=== PATIENT | male | born 1985 | race Caucasian/White ===

== ENCOUNTER 2016-06-14 08:15 | Observation (INO) | payer OTHER ==
[2016-06-14] VITALS (10 sets, daily range): BP systolic 86–140; BP diastolic 57–79
[~2016-06-14] VITALS: Ht 172.7 cm; Wt 119.6 kg
--- NOTE | 2016-06-14 11:58 | DIAGNOSTIC IMAGING REPORT ---
PROCEDURE: CT ABD/PELVIS WITH CONTRAST CLINICAL INDICATION: Right lower quadrant pain, initial encounter TECHNIQUE: 125 ml of Isovue 300 were injected intravenously and axial images were obtained of the entire abdomen and pelvis with sagittal and coronal reformations. COMPARISON: None. FINDINGS: ABDOMEN: 6 mm right major fissure ground-glass nodule. Normal heart size. Hepatic steatosis. Gallbladder, pancreas, spleen, adrenal glands and kidneys are normal. Normal abdominal aorta. PELVIS: Appendicolith and enlarged appendix (1.2 cm) with stranding of the adjacent fat. No abscess or free air. No pelvic mass or free fluid. Bones are unremarkable. IMPRESSION: 1. Acute appendicitis 2. 6 mm right major fissure nodule. Recommend follow-up CT scan in 6 months. 3. Hepatic steatosis 4. Results discussed with Dr. Bates All CT scans at this facility use dose modulation, iterative reconstruction, and/or weight-based dosing when appropriate to reduce radiation dose to as low as reasonably achievable.
--- NOTE | 2016-06-14 12:08 | ED ORDER SUMMARY ---
..... Patient: DUSTY UP OrderSheet [facility] VisitID: [id number] [place] [address] 31y, M Registration Date/Time: 06/14/2016 ORDER SHEET Weight: 113.3 kg (stated) Allergies: Penicillins GENERAL ORDERS: CBC w Diff Urgent (:06/14/2016 Mars OROPEZA) (Ack 9:27 Ra) (10:19 Alis R.N.) CMP Urgent (:06/14/2016 Mars OROPEZA) (Ack 9:28 Ra) (10:19 Alis R.N.) UA-Culture if indicated Urgent (06/14/2016 Mars OROPEZA) (Ack 9:28 Ra) (10:19 Alis R.N.) CT Abd/Pel w Cont (No) (pending) (pending lab) Urgent (09:06/14/2016 Mars OROPEZA) (Ack 9:28 Ra) (10:19 Alis R.N.) - (SET UP FOR PELVIC EXAM WITH VIRAL TRANSPORT MEDIUM READY) (11:58 06/14/2016 Mars OROPEZA) (Cancelled: Wrong [id number] Mars OROPEZA) MEDICATION ORDERS: IV FLUIDS: IV NS : initial bolus none -, then 1000 mL/hr for 2h (NOW); Urgent (:06/14/2016 Mars OROPEZA) (Ack 9:51 Alis R.N.) (10:19 Alis R.N.) Zofran IV 4 mg (NOW) (09:06/14/2016 Mars OROPEZA) (Ack 9:51 Alis R.N.) (10:20 Alis R.N.) Dilaudid IV 1 mg + 0.5 mg (HIGH ALERT MEDICATION) (:06/14/2016 Mars OROPEZA) (Ack 9:51 Alis R.N.) (10:20 Alis R.N.) Levaquin IV 750 mg/150 mL (NOW) (12:35 06/14/2016 Mars OROPEZA) (Ack 12:38 Alis R.N.) (13:28 Alis Anders) Flagyl IV 500 mg/100mL (NOW) (12:35 06/14/2016 Mars OROPEZA) (Ack 12:39 Alis Anders) (12:50 Alis Anders) ORDER SHEET NOTES: [Electronically signed by Hannah Solares R.N. (13:37 06/14/2016)] [Electronically signed by Nathaniel Bates MD (22:24 06/14/2016)] [Electronically locked/signed by Hannah Solares R.N. (13:37 06/14/2016)]
--- NOTE | 2016-06-14 12:08 | ED ORDER SUMMARY ---
..... Patient: DUSTY UP OrderSheet [facility] VisitID: [id number] [place] [address] 31y, M Registration Date/Time: 06/14/2016 ORDER SHEET Weight: 113.3 kg (stated) Allergies: Penicillins GENERAL ORDERS: CBC w Diff Urgent (:06/14/2016 Mars OROPEZA) (Ack 9:27 Ra) (10:19 Alis R.N.) CMP Urgent (:06/14/2016 Mars OROPEZA) (Ack 9:28 Ra) (10:19 Alis R.N.) UA-Culture if indicated Urgent (06/14/2016 Mars OROPEZA) (Ack 9:28 Ra) (10:19 Alis R.N.) CT Abd/Pel w Cont (No) (pending) (pending lab) Urgent (09:06/14/2016 Mars OROPEZA) (Ack 9:28 Ra) (10:19 Alis R.N.) - (SET UP FOR PELVIC EXAM WITH VIRAL TRANSPORT MEDIUM READY) (11:58 06/14/2016 Mars OROPEZA) (Cancelled: Wrong [id number] Mars OROPEZA) MEDICATION ORDERS: IV FLUIDS: IV NS : initial bolus none -, then 1000 mL/hr for 2h (NOW); Urgent (:06/14/2016 Mars OROPEZA) (Ack 9:51 Alis R.N.) (10:19 Alis R.N.) Zofran IV 4 mg (NOW) (09:06/14/2016 Mars OROPEZA) (Ack 9:51 Alis R.N.) (10:20 Alis R.N.) Dilaudid IV 1 mg + 0.5 mg (HIGH ALERT MEDICATION) (:06/14/2016 Mars OROPEZA) (Ack 9:51 Alis R.N.) (10:20 Alis R.N.) Levaquin IV 750 mg/150 mL (NOW) (12:35 06/14/2016 Mars OROPEZA) (Ack 12:38 Alis R.N.) (13:28 Alis Anders) Flagyl IV 500 mg/100mL (NOW) (12:35 06/14/2016 Mars OROPEZA) (Ack 12:39 Alis Anders) (12:50 Alis Anders) ORDER SHEET NOTES: [Electronically signed by Hannah Solares R.N. (13:37 06/14/2016)] [Electronically signed by Nathaniel Bates MD (22:24 06/14/2016)] [Electronically locked/signed by Hannah Solares R.N. (13:37 06/14/2016)]
--- NOTE | 2016-06-14 12:08 | ED CLINICAL REPORT ---
Clinical Report - Physicians/Mid Levels [facility] [address] [place] [address] 06/14/2016 8:19 [id number] Time Seen: 09:19. Arrived- By private vehicle. Historian- patient. HISTORY OF PRESENT ILLNESS Chief Complaint: ABDOMINAL PAIN. Not located in right flank. It is described as located in the right lower quadrant and in the upper abdomen. Modifying factors- worsened by movement, walking and deep breaths. Relieved by rest. This started yesterday 2 PM; Initially mid abdomen now RLQ and is still present. It was gradual in onset. The patient has had nausea and loss of appetite. No vomiting. (Last food 4 pm. Last liquids 7 pm yesterday.). Similar symptoms previously: None. Recent medical care: Not recently seen/assessed. REVIEW OF SYSTEMS No constipation, black stools, hematemesis, difficulty with urination or pain with urination. No urinary frequency, fever, headache or sore throat or throat. No blurred vision, chest pain or pain, difficulty breathing or cough. No joint pain, skin rash, chills, back pain or chills. No fever, muscle aches, double vision, ear pain or cough. No difficulty breathing. Last bowel movement: today. PAST HISTORY [place] [facility]: None Hosp: None Illness: None. SOCIAL HISTORY Never smoker. ADDITIONAL NOTES The nursing notes have been reviewed. PHYSICAL EXAM Vital Signs: 06/14/2016 08:31 BP: 122/69. HR: 60. RR: 18. O2 saturation: 98%. Temp: 97.8 F. Pain level now: 8/10. Appearance: Alert. Patient in mild distress. Eyes: Pupils equal, round and reactive to light. ENT: Pharynx normal. CVS: Heart sounds normal. Respiratory: No respiratory distress. Breath sounds normal. Abdomen: Moderate tenderness in the right lower quadrant. Mild guarding present in the right lower quadrant. Rebound tenderness (mild tenderness to percussion). Back: Normal inspection. : Normal genitalia. Testes descended. Skin: Normal skin color. No rash. Extremities: Extremities exhibit normal ROM. No lower extremity edema. LABS, X-RAYS, AND EKG Laboratory Tests: UA-Culture if indicated: (JODI: 06/14/2016 08:40) ( MsgRcvd 06/14/2016 09:48) Final results Test Result Flag Units (Reference) URINE COLOR YELLOW URINE APPEARANCE CLEAR URINE GLUCOSE NEGATIVE (NEGATIVE) URINE BILIRUBIN NEGATIVE (NEGATIVE) URINE KETONE NEGATIVE (NEGATIVE) URINE SPECIFIC GRAVITY 1.015 (1.010-1.030) URINE PH 6.5 (5.0-8.0) URINE PROTEIN NEGATIVE (NEGATIVE) URINE UROBILINOGEN 0.2 EU/dL (0.2-1.0) URINE NITRITE NEGATIVE (NEGATIVE) URINE BLOOD NEGATIVE (NEGATIVE) URINE LEUK ESTERASE NEGATIVE (NEGATIVE) URINE RBC NONE SEEN rbc/hpf (0-1) URINE WBC 0-1 wbc/hpf (0-1) URINE EPITHELIAL CELLS RARE EPI/hpf (0-5) URINE BACTERIA NONE SEEN (NONE SEEN) URINE COMMENT CULT NOT INDICATED 1+ MUCOUSURINE CULTURES ARE SET-UP BASED ON THE FOLLOWING CRITERIA:POSITIVE NITRITEPOSITIVE LEUKOCYTE ESTERASEGREATER THAN 10 WHITE BLOOD CELLSMODERATE (2+) OR GREATER BACTERIA CBC w Diff: (JODI: 06/14/2016 09:55) ( MsgRcvd 06/14/2016 10:24) Final results Test Result Flag Units (Reference) WHITE BLOOD COUNT 7.8 K/uL (4.5-11.5) RED BLOOD COUNT 5.33 M/uL (4.50-5.90) HEMOGLOBIN 15.8 gm/dL (13.5-17.5) HEMATOCRIT 46.7 % (41.0-53.0) MEAN CELL VOLUME 88 fL (80-100) MEAN CORPUSCULAR HGB 30 pg (26-34) MEAN CORPUSCULAR HGB CONC 34 g/dL (31-37) RED CELL DISTRIBUTION WIDTH 12.0 % (11.6-14.8) PLATELET COUNT 256 K/uL (150-400) NEUTROPHIL % 53.5 % (50-75) LYMPH % 39.8 % (25-40) MONO % 4.6 % (3-14) EOSINOPHIL % 1.6 % (0-4) BASOPHIL % 0.5 % (0-2) CMP: (JODI: 06/14/2016 09:55) ( MsgRcvd 06/14/2016 10:43) Final results Test Result Flag Units (Reference) GLUCOSE 95 mg/dL (70-110) BUN 20 H mg/dL (7-18) CREATININE 1.0 mg/dL (0.6-1.3) Estimated GFR >60 mL/min Estimated GFR- >60 mL/min Note: Persistent reduction over 3 months in eGFR<60 mL/min/1.73 m2 defines CKD. Patients with eGFR values>=60 mL/min/1.73 m2 may also have CKD if evidence ofpersistent proteinuria. Additional information may be foundat www.kidney.org. SODIUM 137 mmol/L (136-145) POTASSIUM 3.9 mmol/L (3.5-5.1) CHLORIDE 103 mmol/L (98-107) CARBON DIOXIDE 27 mmol/L (21-32) CALCIUM 8.8 mg/dL (8.5-10.1) TOTAL PROTEIN 7.5 g/dL (6.4-8.2) ALBUMIN 4.2 g/dL (3.3-5.0) BILIRUBIN, TOTAL 0.6 mg/dL (0.0-1.0) ALKALINE PHOSPHATASE 67 U/L (46-116) AST (SGOT) 19 U/L (15-37) ALT (SGPT) 67 U/L (12-78) . PROGRESS AND PROCEDURES Course of Care: 09:37 06/14/16. Quite suspicious for appy. 12:07 06/14/16. Appy per Dr Alvarez. 12:10 06/14/16. Dr Sanchez will admit. Discussed. T bed requested. 12:33 06/14/16. Dr Sanchez here. He requests Levaquin and Flagyl. Ordered. I have written very brief transitions orders. Dr Sanchez has signed his pre printed order sheet. CLINICAL IMPRESSION ACUTE APPENDICITIS. (Electronically signed by Nathaniel Bates MD 06/14/2016 22:24)
--- NOTE | 2016-06-14 12:08 | ED NURSING NOTES ---
Clinical Report - Nurses [facility] [address] [place] [address] 06/14/2016 8:19 [id number] Triage time 08:31. Acuity: LEVEL 3. Chief Complaint: ABDOMINAL PAIN. Alert. No acute distress. SELENE COMA SCORE: Selene Coma Scale: 15- eyes open spontaneously (4); best verbal response- oriented x 4 (5); best motor response- obeys commands (6). --08:39 Hannah Solares R.N. 08:31 06/14/16. BP: 122/69. HR: 60. RR: 18. O2 saturation: 98% on room air. Temp: 97.8 F (oral). Pain level now: 8/10. --08:39 Hannah Solares R.N. Weight: 113.3 kg stated. Height/Length: 68 inches Per Patient. BMI: 38. --08:33 Hannah Solares R.N. Medications None. --08:33 Hannah Solares R.N. Medication/allergy information source: the patient. --08:39 Hannah Solares R.N. Allergies Penicillins. --08:33 Hannah Solares R.N. History Arrived by private vehicle. Historian: patient. Accompanied by family. Primary physician (Anthony). This started yesterday. Describes the quality as "pain" and stabbing and ( constant pain with intermittent stabbing in RUQ). Relates location as in the right upper quadrant and upper abdomen. Notes pain level as 8/10 on arrival and 10/10 at maximum. Provoking / relieving factors: worsened by deep breaths; relieved by upright position. The patient has had nausea. No vomiting or diarrhea. Last oral intake by patient was (1600 yesterday). SOCIAL HX: Smoker- current status unknown (no). Occasional alcohol use. No drug use. FALL RISK ASSESSMENT: Fall risk assessment completed. No fall risk identified. FUNCTIONAL ASSESSMENT: Functional assessment: no impairments noted. LEARNING NEEDS ASSESSMENT: The learning needs assessment revealed no barriers. --08:39 Hannah Solares R.N. PROBLEMS: no known problems. ADDITIONAL SURGERIES: no known surgeries. Assessment GENERAL / NEURO / PSYCH: Alert. Oriented X 4. Appears in no acute distress. Patient appears calm and cooperative. RESPIRATORY: Respirations not labored. SKIN: Skin is warm and dry. --08:39 Hannah Solares R.N. Interventions ID and allergy band on patient. To treatment room. --08:39 Hannah Solares R.N. PHYSICAL ASSESSMENT 08:44 06/14/16. Ambulatory to room. Patient gowned. GENERAL / NEURO / PSYCH: Alert. Oriented X 4. Appears in no acute distress. RESPIRATORY: Respirations not labored. SKIN: Skin is warm and dry. --08:44 Hannah Solares R.N. NURSING PROGRESS NOTES 08:27 collecting urine specimen. --08:27 Hannah Solares R.N. 08:44 06/14/16. Patient gowned. Head of bed elevated. Call light placed in reach. Side rails up x 1. Bed placed in lowest position. Brakes of bed on. --08:44 Hannah Solares R.N. 08:44 06/14/16. :patient confirmed. Clean catch urine collected; sample sent to lab. Specimen labeled in the presence of the patient. --08:44 Hannah Solares R.N. 10:09 06/14/2016 Site #1 started via IV in the right antecubital space with an 20g angiocath, with aseptic technique and good blood return; one attempt. Blood drawn: rainbow set. Labeled in the presence of the patient and sent to the lab. --10:19 Hannah Solares R.N. 10:19 06/14/2016 Started bag #1 1000 mL IV Fluids IV NS (Saline); at 1000 mL/hr over 1 hour(s) via site #1. IV patency established. IV site checked: no pain, redness, or swelling. IV flushed thoroughly pre- and post-medication administration. --10:19 Hannah Solares R.N. 10:20 06/14/2016 Zofran (Ondansetron HCl) IVP 4 mg given over 2 minute(s) via site #1. Allergies verified and confirmed 5 rights. IV patency established. IV site checked: no pain, redness, or swelling. IV flushed thoroughly pre- and post-medication administration. IVP given by RN. --10:20 Hannah Solares R.N. 10:20 06/14/2016 Dilaudid (HYDROmorphone HCl PF) IVP 1 mg given over 2 minute(s) via site #1. Allergies verified, confirmed 5 rights and sedative warning given to the patient. IV patency established. IV site checked: no pain, redness, or swelling. IV flushed thoroughly pre- and post-medication administration. IVP given by RN. --10:20 Hannah Solares R.N. Patient transported to CT by stretcher. --10:52 Hannah Solares R.N. Patient returned from CT by stretcher. --12:12 Hannah Solares R.N. 11:30. Reassessment after fluids administered and medication administered. He is resting quietly. Overall patient status is the same- he states feels the same. --12:12 Hannah Solares R.N. 12:13. Reassessment after fluids administered, procedure and medication administered. He is resting quietly. Overall patient status is the same- he states feels the same (up, amb to BR). SKIN: Skin is warm and dry. --12:14 Hannah Solares R.N. ( h&P GIVEN TO PT TO FILL OUT). --12:17 Yvette Landers 12:26 06/14/2016 IV Fluids IV NS Bag Change: bag #1 infused. Total amount infused: 1000. STARTED bag #2 (1000 mL) at 150 mL/hr. --12:51 Hannah Solares R.N. 12:32 06/14/2016 Dilaudid (HYDROmorphone HCl PF) IVP 0.5 mg given over 2 minute(s) via site #1. Allergies verified, confirmed 5 rights and sedative warning given to the patient. IV patency established. IV site checked: no pain, redness, or swelling. IV flushed thoroughly pre- and post-medication administration. IVP given by RN. --12:38 Hannah Solares R.N. 12:50 06/14/2016 Started 500 mg of Flagyl (MetroNIDAZOLE in NaCl) IVPB in bag #1 100 mL; at 100 mL/hr over 1 hour(s) via site #1 via IV pump. Allergies verified and confirmed 5 rights. IV patency established. IV site checked: no pain, redness, or swelling. IV flushed thoroughly pre- and post-medication administration. --12:50 Hannah Solares R.N. 12:40 Dr Sanchez at bedside. --12:52 Hnanah Solares R.N. 12:53 06/14/16. Reassessment after fluids administered and medication administered. He is resting quietly. Overall patient status is the same- he states feels the same. SKIN: Skin is warm and dry. --12:53 Hannah Solares R.N. <<STRICKEN ENTRY-- 13:27 06/14/2016 Started 750 mg of Levaquin (Levofloxacin) IVPB in bag #1 100 mL; at 100 mL/hr via site #1; (sent to floor to be infused after Flagyl per Klaus HINOJOSA, Manager Research Development). --13:28 Hannah Solares R.N. --END STRIKE>> Change to Details. --13:29 Hannah Solares R.N. 13:27 06/14/2016 Started 750 mg of Levaquin (Levofloxacin) IVPB in bag #1 100 mL; at 100 mL/hr via site #1; (sent to floor to be infused after Flagyl per Klaus HINOJOSA, [employer], NOT STARTED in ED as pharmacy states not compatible with Flagyl). --13:29 Hannah Solares R.N. 13:22. Reassessment after fluids administered and medication administered. He is calm and resting quietly. Overall patient status is the same- he states feels the same. GI / : Denies nausea or vomiting. SKIN: Skin is warm and dry. --13:31 Hannah Solares R.N. 10:00 06/14/16. BP: 126/78. HR: 66. RR: 18. O2 saturation: 99%. Pain level now: 10/15. --13:33 Hannah Solares R.N. DISPOSITION / DISCHARGE Admitted. Transported via stretcher by [facility] with IV. Report was given to a nurse via a phone call. Report included patient's care, treatment, medications, reviewed medication reconcilliation, and condition (including any recent changes or anticipated changes). All questions were answered. Report was acknowledged. ( transferred to floor with IV intact and infusing NS and Flagyl). Patient's personal items; items were transported with the patient. --13:07 Hannah Solares R.N. 12:51 06/14/16. BP: 115/73. HR: 72. RR: 18. O2 saturation: 91% on room air. Pain level now: 10/15. --13:07 Hannah Solares R.N. Departure time: 1322. --13:31 Hannah Solares R.N. 11:00 06/14/16. BP: 124/75. HR: 57. RR: 18. O2 saturation: 99%. Pain level now: 10/15. --13:35 Hannah Solares R.N. Locked/Released at 06/14/2016 13:37 by Hannah Solares R.N.
[2016-06-14] MEDS ORDERED: [UNRECOGNIZED DRUG - OTHER] (14:07)
[2016-06-14] MEDS ORDERED: MOTRIN100 MG/5 M PO (14:07)
[2016-06-14] MEDS ORDERED: NORCO1 TA1 PO (16:02)
--- NOTE | 2016-06-14 16:03 | Provider's Discharge Care Plan ---
Problem, Goal, Plan Problem List 1. Acute appendicitis
--- NOTE | 2016-06-14 16:03 | Provider's Discharge Care Plan ---
Problem, Goal, Plan Problem List 1. Acute appendicitis
--- NOTE | 2016-06-14 20:10 | OPERATIVE REPORT ---
DATE OF SURGERY: 06/14/2016 SURGEON: Fadi Sanchez MD PREOPERATIVE DIAGNOSIS: 1. Acute appendicitis POSTOPERATIVE DIAGNOSIS: 1. Acute suppurative appendicitis PROCEDURE PERFORMED: 1. Laparoscopic appendectomy ANESTHESIA: General. INDICATIONS: The patient is a 31-year-old man with a 1-day history of worsening abdominal pain. SURGICAL TECHNIQUE: The patient was taken to the operating room where a general anesthetic was administered, and the patient prepped and draped in the usual sterile fashion. An orogastric tube, IV antibiotics, and sequential compression devices were in place. Local anesthetic of 0.5% Marcaine with epinephrine was used at each incision site. An infraumbilical incision was made and a Veress needle used to insufflate the abdominal cavity. A 10 mm trocar was passed, and 2 additional trocars were placed in the lower midline. The appendix was found to be inflamed, though the base of the appendix itself was pink and normal. The distal half was suppurative, but not perforated. The mesoappendix was taken down using the Thunderbeat device, and the base of the appendix clipped with 2 Hem-o-odilia clips. The specimen side was clipped and the appendix partially divided. Bipolar current was applied to the mucosa, following which the appendix was transected and placed in a specimen bag and removed from the abdomen. Irrigation and suction were used and hemostasis was found be complete. Additional Marcaine was instilled. Gas was evacuated. The skin sites were closed with interrupted subcuticular 4-0 Vicryl sutures. Steri-Strips and dressings were applied, and the patient left in good condition.
--- NOTE | 2016-06-14 22:25 | ED MAR SUMMARY ---
..... Medication Administration Record [facility] [address] [place] [address] Patient: DUSTY UP Visit ID: [id number] 31y, M Weight: 113.3 kg Height/Length: 68 in BMI: 38 ALLERGIES: Penicillins Start 10:19 06/14/2016 Hannah Solares R.N. Medication Administered: IV NS (SALINE), Dose: IV Fluids over 1 hour(s), Rate: 1000 mL/hr, Dispensed: 1000 mL bag, Site: #1 right AC. Medication Ordered: IV NS : initial bolus none -, then 1000 mL/hr for 2h (NOW); Urgent. Given 10:06/14/2016 Hannah Solares R.N. Medication Administered: ZOFRAN [IVP] (ONDANSETRON HCL), Dose: 4 mg IVP over 2 minute(s), Site: #1 right AC. Medication Ordered: Zofran IV 4 mg (NOW). Given 10:06/14/2016 Hannah Solares R.N. Medication Administered: DILAUDID [IVP] (HYDROMORPHONE HCL PF), Dose: 1 mg IVP over 2 minute(s), Site: #1 right AC. Medication Ordered: Dilaudid IV 1 mg + 0.5 mg (HIGH ALERT MEDICATION). Given 12:32 06/14/2016 Hannah Solares R.N. Medication Administered: DILAUDID [IVP] (HYDROMORPHONE HCL PF), Dose: 0.5 mg IVP over 2 minute(s), Site: #1 right AC. Medication Ordered: Dilaudid IV 1 mg + 0.5 mg (HIGH ALERT MEDICATION). Start 12:50 06/14/2016 Hannah Solares R.N. Medication Administered: FLAGYL [IVPB] (METRONIDAZOLE IN NACL), Dose: 500 mg IVPB over 1 hour(s), Rate: 100 mL/hr, Dispensed: 100 mL bag, Site: #1 right AC. Medication Ordered: Flagyl IV 500 mg/100mL (NOW). Start 13:27 06/14/2016 Hannah Solares R.N. Medication Administered: LEVAQUIN [IVPB] (LEVOFLOXACIN), Dose: 750 mg IVPB, Rate: 100 mL/hr, Dispensed: 100 mL bag, Site: #1 right AC. Medication Ordered: Levaquin IV 750 mg/150 mL (NOW).
--- NOTE | 2016-06-14 22:25 | ED DISCHARGE INSTRUCTIONS ---
Patient: DUSTY UP General Instructions [facility] VisitID: [id number] [address] [place] [address] 31y, M Registration Date/Time: 06/14/2016 ACUTE APPENDICITIS. (Electronically signed by Nathaniel Bates MD 06/14/2016 22:24)
--- NOTE | 2016-06-14 22:25 | ED MED RECONCILIATION SUMMARY ---
Patient: DUSTY UP Medication Reconciliation Report [facility] VisitID: [id number] [address] [place] [address] 31y, M Registration Date/Time: 06/14/2016 Weight: 113.3 kg Height/Length: 68 in. BMI: 38.0 ALLERGIES: Penicillins The patient's Home Medications are listed below: NONE. The source(s) of the original Home Medication information: patient The following Medications were given to the patient in the Emergency Department: IV NS IV Fluids bolus 0, then 1000 mL/hr, administered: 06/14/2016 10:19:00 AM Zofran [IVP] IVP 4 mg, administered: 06/14/2016 10:20:00 AM Dilaudid [IVP] IVP 1 mg, administered: 06/14/2016 10:20:00 AM Dilaudid [IVP] IVP 0.5 mg, administered: 06/14/2016 12:32:00 PM Flagyl [IVPB] IVPB bolus 0, then 500 mg 100 mL/hr, administered: 06/14/2016 12:50:00 PM Levaquin [IVPB] IVPB bolus 0, then 750 mg 100 mL/hr, administered: 06/14/2016 1:27:00 PM The following Medications were prescribed to the patient: None.
--- NOTE | 2016-06-14 22:25 | ED DISCHARGE INSTRUCTIONS ---
Patient: DUSTY UP General Instructions [facility] VisitID: [id number] [address] [place] [address] 31y, M Registration Date/Time: 06/14/2016 ACUTE APPENDICITIS. (Electronically signed by Nathaniel Bates MD 06/14/2016 22:24)
--- NOTE | 2016-06-14 22:25 | ED MAR SUMMARY ---
..... Medication Administration Record [facility] [address] [place] [address] Patient: DUSTY UP Visit ID: [id number] 31y, M Weight: 113.3 kg Height/Length: 68 in BMI: 38 ALLERGIES: Penicillins Start 10:19 06/14/2016 Hannah Solares R.N. Medication Administered: IV NS (SALINE), Dose: IV Fluids over 1 hour(s), Rate: 1000 mL/hr, Dispensed: 1000 mL bag, Site: #1 right AC. Medication Ordered: IV NS : initial bolus none -, then 1000 mL/hr for 2h (NOW); Urgent. Given 10:06/14/2016 Hannah Solares R.N. Medication Administered: ZOFRAN [IVP] (ONDANSETRON HCL), Dose: 4 mg IVP over 2 minute(s), Site: #1 right AC. Medication Ordered: Zofran IV 4 mg (NOW). Given 10:06/14/2016 Hannah Solares R.N. Medication Administered: DILAUDID [IVP] (HYDROMORPHONE HCL PF), Dose: 1 mg IVP over 2 minute(s), Site: #1 right AC. Medication Ordered: Dilaudid IV 1 mg + 0.5 mg (HIGH ALERT MEDICATION). Given 12:32 06/14/2016 Hannah Solares R.N. Medication Administered: DILAUDID [IVP] (HYDROMORPHONE HCL PF), Dose: 0.5 mg IVP over 2 minute(s), Site: #1 right AC. Medication Ordered: Dilaudid IV 1 mg + 0.5 mg (HIGH ALERT MEDICATION). Start 12:50 06/14/2016 Hannah Solares R.N. Medication Administered: FLAGYL [IVPB] (METRONIDAZOLE IN NACL), Dose: 500 mg IVPB over 1 hour(s), Rate: 100 mL/hr, Dispensed: 100 mL bag, Site: #1 right AC. Medication Ordered: Flagyl IV 500 mg/100mL (NOW). Start 13:27 06/14/2016 Hannah Solares R.N. Medication Administered: LEVAQUIN [IVPB] (LEVOFLOXACIN), Dose: 750 mg IVPB, Rate: 100 mL/hr, Dispensed: 100 mL bag, Site: #1 right AC. Medication Ordered: Levaquin IV 750 mg/150 mL (NOW).
--- NOTE | 2016-06-14 22:25 | ED MED RECONCILIATION SUMMARY ---
Patient: DUSTY UP Medication Reconciliation Report [facility] VisitID: [id number] [address] [place] [address] 31y, M Registration Date/Time: 06/14/2016 Weight: 113.3 kg Height/Length: 68 in. BMI: 38.0 ALLERGIES: Penicillins The patient's Home Medications are listed below: NONE. The source(s) of the original Home Medication information: patient The following Medications were given to the patient in the Emergency Department: IV NS IV Fluids bolus 0, then 1000 mL/hr, administered: 06/14/2016 10:19:00 AM Zofran [IVP] IVP 4 mg, administered: 06/14/2016 10:20:00 AM Dilaudid [IVP] IVP 1 mg, administered: 06/14/2016 10:20:00 AM Dilaudid [IVP] IVP 0.5 mg, administered: 06/14/2016 12:32:00 PM Flagyl [IVPB] IVPB bolus 0, then 500 mg 100 mL/hr, administered: 06/14/2016 12:50:00 PM Levaquin [IVPB] IVPB bolus 0, then 750 mg 100 mL/hr, administered: 06/14/2016 1:27:00 PM The following Medications were prescribed to the patient: None.
--- NOTE | 2016-06-15 02:42 | CONSULTATION REPORT ---
DATE OF CONSULTATION: 06/14/2016 CHIEF COMPLAINT: 1. Abdominal pain HISTORY OF PRESENT ILLNESS: The patient is a 31-year-old man who presented to the emergency room with a 1-day history of worsening abdominal pain. It started at 2 :00 on 06/13/2016 in the periumbilical area, and over the day, localized to the right lower quadrant of the abdomen. In the bilingual medical receptionist hours, it became more intense, causing him to go to the hospital. The patient reports nausea, but no vomiting. He has had no diarrhea or other gastrointestinal complaints. MEDICAL/SURGICAL HISTORY: Past medical history: None. Past surgical history: None. MEDICATIONS: 1. None. ALLERGIES: 1. PENICILLIN CAUSING HIVES. SOCIAL HISTORY: The patient is . He does not smoke cigarettes. 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 The patient lives towards [place] and formerly worked at the [employer]. FAMILY HISTORY: Both parents are alive and well. REVIEW OF SYSTEMS: A multipoint review of systems was obtained by questionnaire on 06/14/2016. Pertinent positives include the GI symptoms mentioned earlier. He has had some trouble with sleeping and nervousness. All the other remaining systems covered in the questionnaire were negative including more than 12 systems. PHYSICAL EXAMINATION: GENERAL: The patient was alert and cooperative NEURO: mental status normal, no motor or sensory problems found, cranial nerves normal. HEENT: Ears and nose without gross external lesions. Eyes are equal. He is anicteric. NECK: Without palpable masses or thyromegaly. CHEST: Clear without wheeze or rales. HEART: Regular, without murmur or gallop. ABDOMEN: Reveals localized tenderness in the right lower quadrant of the abdomen with referred pain and involuntary guarding. EXTREMITIES: no deformity or limitation to movement SKIN: with out tumors or lesions LAB/IMAGING: The patient had a leukocytosis. His CT scan demonstrated appendicolith and evidence of acute appendicitis. IMPRESSION: 1. Acute appendicitis. PLAN: I recommend the patient undergo a laparoscopic appendectomy. I talked to the patient about the nature of this operation as well as alternatives, benefits and risks. Risks discussed included infection, bleeding, scar, pain, damage to local structures, alternative diagnoses and open surgery. The patient would like to proceed as described to him.
--- NOTE | 2016-06-15 02:42 | CONSULTATION REPORT ---
DATE OF CONSULTATION: 06/14/2016 CHIEF COMPLAINT: 1. Abdominal pain HISTORY OF PRESENT ILLNESS: The patient is a 31-year-old man who presented to the emergency room with a 1-day history of worsening abdominal pain. It started at 2 :00 on 06/13/2016 in the periumbilical area, and over the day, localized to the right lower quadrant of the abdomen. 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 The patient reports nausea, but no vomiting. He has had no diarrhea or other gastrointestinal complaints. MEDICAL/SURGICAL HISTORY: Past medical history: None. Past surgical history: None. MEDICATIONS: 1. None. ALLERGIES: 1. PENICILLIN CAUSING HIVES. SOCIAL HISTORY: The patient is . He does not smoke cigarettes. 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 The patient lives towards [place] and formerly worked at the [employer]. FAMILY HISTORY: Both parents are alive and well. REVIEW OF SYSTEMS: A multipoint review of systems was obtained by questionnaire on 06/14/2016. Pertinent positives include the GI symptoms mentioned earlier. He has had some trouble with sleeping and nervousness. All the other remaining systems covered in the questionnaire were negative including more than 12 systems. PHYSICAL EXAMINATION: GENERAL: The patient was alert and cooperative NEURO: mental status normal, no motor or sensory problems found, cranial nerves normal. HEENT: Ears and nose without gross external lesions. Eyes are equal. He is anicteric. NECK: Without palpable masses or thyromegaly. CHEST: Clear without wheeze or rales. HEART: Regular, without murmur or gallop. ABDOMEN: Reveals localized tenderness in the right lower quadrant of the abdomen with referred pain and involuntary guarding. EXTREMITIES: no deformity or limitation to movement SKIN: with out tumors or lesions LAB/IMAGING: The patient had a leukocytosis. His CT scan demonstrated appendicolith and evidence of acute appendicitis. IMPRESSION: 1. Acute appendicitis. PLAN: I recommend the patient undergo a laparoscopic appendectomy. I talked to the patient about the nature of this operation as well as alternatives, benefits and risks. Risks discussed included infection, bleeding, scar, pain, damage to local structures, alternative diagnoses and open surgery. The patient would like to proceed as described to him.
== END 2016-06-14 22:30 | disposition home or self-care (01) ==
LOC: ED SRH 08:15 → TRANS SRH 12:13 → ACUTE2 SRH 14:07
PROVIDERS: Surgery; ADMIT Emergency Medicine Emergency Medical Services
PROC: 0DTJ4ZZ Resection of Appendix, Percutaneous Endoscopic Approach (ICD-10-PCS; principal; 2016-06-14 14:00)
DX: K35.80 Unspecified acute appendicitis (principal)
CPT/HCPCS: 29229; 29230; 50002; 60001; 70002; 80102; 80212; 80248; 82794; 82811; 82897; 83338; 83432; 83526; 83580; 83587; 83982; 84038; 85420; 90004; 90100; 95059